=== PATIENT | male | born 1985 | race Caucasian/White ===

== ENCOUNTER 2019-04-06 18:32 | Emergency (ER) | payer OTHER, SELFPAY ==
[2019-04-06 18:35] VITALS: BP 138/86; PULSE 110; RESP 17; TEMP 37.3; O2SAT 97; BMI 31.4
--- NOTE | 2019-04-06 18:46 | ED_ITS ---
HPI - URI/Sore Throat General: Chief Complaint: Upper Respiratory Infection Stated Complaint: headache Time Seen by Provider: 04/06/19 18:40 History of Present Illness: HPI Narrative: Patient is a 33-year-old male who presents to the emergency department complaint of sinus headache, sinus drainage, subjective fever, chills, nasal congestion and cough for last 3 days. He states nasal discharge is clear. He complains of throbbing headache. No history of migraines or medication allergies. He does admit to history of sinus problems. No medications taken prior to arrival. He denies any sneezing, watery eyes, nausea, vomiting abdominal pain. MD elicited complaint: sinus pain Pertinent past history: sinusitis Severity: moderate Description of mucous: clear Able to tolerate fluids by mouth: Yes Exacerbating factors: nothing Relieving factors: nothing Associated symptoms: Reports chills, congestion, cough, headache(s) and sinus pain; Deny abdominal pain Review of Systems Const: Reports: chills Eyes: Denies: change in vision ENMT: Reports: facial/sinus pain Card: Denies: edema Resp: Reports: non-productive cough GI: Denies: abdominal pain : Denies: flank pain or painful urination Musc: Denies: extremity swelling or redness Skin/Breast: Denies: rash or skin swelling Neuro: Reports: headache Psych: Denies: anxiety Endo: Denies: excessive urination Walter/Lymph: Denies: purpura All/Imm: Denies: hives PFSH ED PFSH: Statuses (acute, chronic, etc) shown below reflect problem list status as previously entered and may not be historically accurate Social History Smoking and tobacco status: current every day smoker Physical Exam Const: COMMON NORMALS: no apparent distress, oriented x3 and alert ORIENTATION/CONSCIOUSNESS: Yes oriented to person and Yes oriented to place HENMT: FACE & SINUS: sinuses nontender (frontal) Eye: COMMON NORMALS: PERRL, EOMs intact bilaterally and conjunctivae normal GENERAL EYE: normal appearance of both eyes CONJUNCTIVA: Yes conjunctivae normal PUPIL: Yes PERRL Neck/C-Spine: COMMON NORMALS: full ROM, no lymphadenopathy, supple, no meningeal signs and no JVD GENERAL: Yes normal visual inspection and Yes trachea midline Lymph: LYMPHATIC: no lymphadenopathy noted Chest: COMMONS NORMALS: inspection of chest normal Resp: COMMON NORMALS: normal respiratory effort, no retractions and clear to auscultation bilaterally EFFORT & INSPECTION: Yes able to speak in complete sentences AUSCULTATION: clear to auscultation bilaterally Cardio: COMMON NORMALS: no JVD, regular rate and regular rhythm RATE: regular rate RHYTHM: regular rhythm GI: INSPECTION: Yes normal to inspection AUSCULTATION: Yes normoactive bowel sounds : COMMON NORMALS: Yes no CVA tenderness BLADDER/KIDNEY EXAM: Yes no CVA tenderness Back/Pelvis: COMMON NORMALS: no CVA tenderness THORACIC SPINE/UPPER BACK: Yes normal to inspection LUMBAR SPINE/LOWER BACK: Yes normal to inspection Extremity: COMMON NORMALS: normal to inspection, full ROM and normal capillary refill GENERAL: Yes normal exam except as noted Neuro: COMMON NORMALS: oriented x3, CN's II-XII intact bilaterally, moves all extremities, no focal motor deficits and no sensory deficits noted SENSORIUM/ORIENTATION: Yes alert, Yes oriented to person and Yes oriented to place MENINGEAL SIGNS: Yes no meningeal signs SPEECH: speech normal GAIT: Yes normal gait Psych: COMMON NORMALS: mental status grossly normal, thought process normal, cooperative, affect normal and speech normal APPEARANCE: Yes grossly normal SPEECH: Yes normal speech THOUGHT PROCESS: normal thought process Skin: COMMON NORMALS: no rashes or lesions noted, no wounds and skin turgor normal GENERAL SKIN EXAM: no rashes or lesions noted, elasticity normal and turgor normal Course ED course: Patient with pain on palpation over frontal sinuses with sinus drainage and subjective fever with low-grade temp in the emergency department. Patient with history of sinusitis. Discussed influenza timeline and treatment versus bacterial infection. Patient wishes to proceed with antibiotics for sinusitis. Supportive care measures discussed at length. Stable for discharge after medical screening exam. Vital Signs: Vital signs: Vital Signs Temperature 99.2 F 04/06/19 18:35 Pulse Rate 110 H 04/06/19 18:35 Respiratory Rate 17 04/06/19 18:35 Blood Pressure 138/86 04/06/19 18:35 Pulse Oximetry 97 04/06/19 18:35 MDM - URI/Sore Throat MDM Narrative: Medical decision making narrative: Will treat for sinusitis. Will discharge home with amoxicillin. Supportive care measures discussed at length. Return precautions given along with follow-up with primary care provider. Patient verbalized understanding. Differential Diagnosis: Upper Respiratory Differential Diagnosis: Likely upper respiratory infection, sinusitis and viral infection Discharge Plan Discharge Patient Disposition: Home, Self-Care Clinical Impression: Sinusitis Condition: Stable Prescriptions: New amoxicillin 500 mg capsule 500 mg PO TID 10 Days Qty: 30 RF: 0 ibuprofen 800 mg tablet 800 mg PO Q8H PRN (Reason: pain) Qty: 30 RF: 0 Discharge Orders: Discharge Order (Routine); Ordered 04/06/19 Ordered By: Darrel Jordan Discharge Diet: Usual diet Discharge Activity: Resume usual activity Patient Instructions: Sinusitis - Acute Activity Restrictions/Additional Instructions: Take ibuprofen 800 mg 3 times a day to help with mucosal swelling. Drink plenty of water and Gatorade for oral hydration to clear mucus buildup. May instill Lanier nasal spray. To provide moisture to the nares. Take medication as directed. Follow-up with primary care provider for ongoing evaluation. Obtain Sudafed PE which is [id number] as decongestant. Coding Level of Care Code ED Department Sales Manager for Rambo Krause
[2019-04-06] MEDS: ketorolac 30 mg/mL INJ IVP (19:12)
[2019-04-06 19:21] VITALS: BP 131/97; PULSE 100; RESP 18; O2SAT 96
== END 2019-04-06 19:22 | disposition home or self-care (01) ==
LOC: ER 19:25
PROVIDERS: Emergency Provider Nurse Practitioner
DX: J32.9 Chronic sinusitis, unspecified (principal); F17.210 Nicotine dependence, cigarettes, uncomplicated
CPT/HCPCS: 96374; 96375; 99281; 99283; J1885

== ENCOUNTER 2020-11-26 12:52 | Emergency (ER) | payer OTHER, SELFPAY ==
[2020-11-26 13:25] VITALS: BP 131/87; PULSE 82; RESP 19; TEMP 36.9; O2SAT 99; BMI 29.6
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
[2020-11-26 13:40] VITALS: BP 131/87; PULSE 82; RESP 18; O2SAT 95
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
[2020-11-26] MEDS: iohexol 300 mg/mL 100 mL Btl IV (14:31)
[2020-11-26 16:27] LABS: Alanine Aminotransferase 23 U/L (0-41); Albumin Level 4.3 g/dL (3.5-5.2); Alkaline Phosphatase 97 IU/L (40-130); Anion Gap 14.5 (5-19); Aspartate Amino Transferase 17 U/L (0-40); Blood Urea Nitrogen 9 mg/dL (6-20); Calcium 9.1 mg/dL (8.5-10.5); Carbon Dioxide 27 mmol/L (22-29); Chloride 100 mmol/L (98-107); Globulin 3.2 g/dL (1.3-4.6); Glomerular Filtration Rate 109.4 mL/min (90-130); Glucose 107 mg/dL (65-115); Osmolality Calculated 283 mOsm/kg (285-295); Potassium 4.5 mmol/L (3.5-5.1); Sodium 137 mmol/L (136-145); Total Bilirubin 0.3 mg/dL (0.15-1.2); Total Protein 7.5 g/dL (6.6-8.7)
== END 2020-11-26 15:51 | disposition home or self-care (01) ==
PROVIDERS: Emergency Provider Physician Assistant; PCP Family Medicine
DX: S21.231A Puncture wound without foreign body of right back wall of thorax without penetration into thoracic cavity, initial encounter (principal); X95.9XXA Assault by unspecified firearm discharge, initial encounter; F17.210 Nicotine dependence, cigarettes, uncomplicated
CPT/HCPCS: 71260; 72128; 80053; 99282; Q9967

== ENCOUNTER 2021-07-30 02:17 | Emergency (ER) | payer OTHER, SELFPAY ==
[2021-07-30 02:19] VITALS: BP 143/89; PULSE 99; RESP 18; TEMP 36.5; O2SAT 99; BMI 30.9
--- NOTE | 2021-07-30 02:45 | ED_ITS ---
HPI - Eye Problem General: Chief complaint: Eye Problems Stated complaint: possible metal object in R eye Time Seen by Provider: 07/30/21 02:26 History of Present Illness: Patient report using a napper grinder 2 days ago and felt he might of got a piece of metal in his eye. Patient did not have much discomfort until this evening. Patient came in due to difficulty sleeping and pain. Associated symptoms: Denies neck pain Review of Systems General: Reports: 10 or more systems reviewed and unremarkable except in HPI and below Eyes: Reports: eye discomfort and eye redness Resp: Denies: dyspnea Musc: Denies: neck pain PFSH ED PFSH: Social History Smoking and tobacco status: current every day smoker Physical Exam Const: COMMON NORMALS: alert HENMT: HEAD & SCALP: normal to inspection Eye: VISUAL ACUITY: Yes acuity normal VISUAL VAUGHAN: Yes peripheral vision loss CORNEA: Yes fluorescein used (Note a speck of brown material 4:00 iris edge) Neck/C-Spine: COMMON NORMALS: full ROM Resp: COMMON NORMALS: normal respiratory effort Cardio: COMMON NORMALS: regular rate RATE: regular rate Neuro: SENSORIUM/ORIENTATION: Yes alert Procedures FB Removal Eye Location: eye (R) Foreign body: metal Evidence of corneal penetration: No Technique: cotton tip swab and needle Procedure performed under: direct visualization with magnification Post-procedure medication: ophthalmic antibiotic and topical anesthetic Patient tolerated procedure: well and no complications Course Vital Signs: Vital signs: Vital Signs Temperature 97.7 F 07/30/21 02:19 Pulse Rate 99 07/30/21 02:19 Respiratory Rate 18 07/30/21 02:19 Blood Pressure 144/69 07/30/21 02:48 Pulse Oximetry 96 07/30/21 02:48 MDM - Eye Problem Medical Decision Making 35-year-old male patient comes in with a possible speck of metal from a napper grinder in his eye for 2 to 3 days. On exam we do note a speck of brown material at the 4 o'clock position at the edge of the iris of the right eye. Acuity is normal. Differential diagnosis includes corneal abrasion, corneal penetration, foreign body. We used a needle technique to remove most of the metal from the eye although there remained a rust ring. Patient be started on antibiotic eyedrops and recommended to follow-up with eye health care technician for complete removal of the rust ring. Explained to patient that in order to poor cosmetic appearance it is necessary for him to have the rust ring removed as it may stain the iris. Patient reported understanding and agreed to plan with need for follow-up. Discharge Plan Discharge Patient Disposition: Home Clinical Impression: Foreign body in eye Qualifiers: Encounter type: initial encounter Laterality: right Qualified Code(s): T15.91XA - Foreign body on external eye, part unspecified, right eye, initial encounter Condition: Stable Prescriptions: No Action ibuprofen 800 mg tablet 800 mg PO Q8H PRN (Reason: pain) Qty: 30 0RF Discharge Orders: Discharge ED (Routine); Ordered 07/30/21 Ordered By: Viraj Nichole Referrals: Zayra Dias MD [Primary Care Provider] - Discharge Diet: Usual diet Discharge Activity: Increase activity as tolerated Patient Instructions: Eye Foreign Body (ED) Activity Restrictions/Additional Instructions: Use tetracaine, eye pain drops, 1 drop every 2 hours as needed for severe eye pain. You may use Tylenol and ibuprofen for further pain relief. Use antibiotic eyedrops 1 drop to the affected eye 4 times a day while awake for the next 7 days. Follow-up with eye health care technician to have the rust ring completely removed. If you fail to have the rust ring removed it may stain your iris. Return to ER for new concerns. Stand Alone Forms: Work/School Release Coding Level of Care Code ED Flower Pot Press Operator for Rambo Krause Exam Detailed
[2021-07-30] MEDS: eye irrigation 30 mL Btl EYE-RIGHT (02:47)
[2021-07-30] MEDS: tetracaine 0.5% Op Soln 4 mL Btl 1 DROP EYE-RIGHT (02:47)
[2021-07-30] MEDS: fluorescein 1 mg Strip EYE-RIGHT (02:47)
[2021-07-30 02:48] VITALS: BP 144/69; O2SAT 96
[2021-07-30] MEDS: neomycin-poly-dex Op 5 mL Btl 2 DROP EYE-RIGHT (03:07)
[2021-07-30] MEDS: neomycin-poly-dex Op oint 3.5 gm 1 APPLIC EYE-RIGHT (03:07)
[2021-07-30 03:17] VITALS: BP 144/69
== END 2021-07-30 03:23 | disposition home or self-care (01) ==
PROVIDERS: Emergency Provider Nurse Practitioner Family; PCP Family Medicine
DX: T15.81XA Foreign body in other and multiple parts of external eye, right eye, initial encounter (principal)
CPT/HCPCS: 65205; 99283

== ENCOUNTER 2021-08-10 02:22 | Emergency (ER) | payer OTHER, SELFPAY ==
[2021-08-10 02:26] VITALS: BP 160/92; PULSE 104; RESP 20; TEMP 36.5; O2SAT 97; BMI 30.8
--- NOTE | 2021-08-10 02:41 | ED_ITS ---
HPI - Dental/Oral General: Chief complaint: Dental/Oral Stated complaint: Toothache Time Seen by Provider: 08/10/21 02:24 History of Present Illness: Patient is a 35-year-old male comes to the ED with dental pain. Symptoms started approximately 4 days ago. Pain is located in the left lower jaw. Pain currently rated a 5 out of 10. 2 days ago he had some swelling on the left side of his face but he started taking fish antibiotics and his swelling has improved. [facility] and he is set up with a dentist in [place] for follow-up. Teeth map: 1. Dental pain and extensive caries on teeth #21 and #20. Associated symptoms: Denies fever(s) or odynophagia Review of Systems Const: Denies: fever(s), chills or fatigue Eyes: Denies: change in vision or eye discomfort ENMT: Reports: dental pain; Denies: throat pain, odynophagia, nasal discharge or nasal congestion Card: Denies: chest pain, palpitations, edema, swelling of feet/ankles, dy spnea on exertion or orthopnea Resp: Denies: dyspnea, productive cough or non-productive cough GI: Denies: abdominal pain, nausea, vomiting, diarrhea, constipation or hematochezia : Denies: flank pain, difficulty urinating, dysuria or hematuria Musc: Denies: neck pain, back pain or extremity swelling Skin/Breast: Denies: rash or new lesions Neuro: Denies: headache(s), numbness in extremities or weakness in extremities [facility] ED PFSH: Medical History No pertinent family history Surgical History No pertinent past surgical history Social History Smoking and tobacco status: current every day smoker Physical Exam Const: COMMON NORMALS: patient oriented x3 and alert GENERAL APPEARANCE: cooperative and comfortable HENMT: COMMON NORMALS: normocephalic HEAD & SCALP: normocephalic FACE & SINUS: no edema MOUTH: Normal oral and palatal mucosa present TEETH & GINGIVA: Yes abnormal tooth and associated gingiva lower left first bicuspid tender, with associated gingival edema and other (Extensive dental caries) and Yes caries TEETH & GINGIVA IMAGES: 1. Extensive dental decay and gingival edema noted on teeth #21 and #20. THROAT: posterior oropharynx normal and uvula midline Neck/C-Spine: COMMON NORMALS: supple GENERAL: Yes normal visual inspection Resp: COMMON NORMALS: normal respiratory effort, No retractions, No use of accessory muscles and clear to auscultation bilaterally AUSCULTATION: clear to auscultation bilaterally Cardio: COMMON NORMALS: regular rate, regular rhythm, S1 normal heart sound present, S2 normal heart sound present, No gallops present (Cardio), No clicks present (Cardio), No murmurs present (Cardio) and Peripheral pulses 2+ throughout RATE: regular rate RHYTHM: regular rhythm HEART SOUNDS: S1 normal heart sound present and S2 normal heart sound present PERIPHERAL PULSES: Peripheral pulses 2+ throughout GI: COMMON NORMALS: Normal to inspection, nondistended, normoactive bowel sounds present, Soft to palpation, non-tender and no masses PALPATION: Yes Soft to palpation : COMMON NORMALS: Yes no CVA tenderness BLADDER/KIDNEY EXAM: Yes no CVA tenderness Back/Pelvis: COMMON NORMALS: no CVA tenderness Extremity: COMMON NORMALS: normal to inspection Neuro: COMMON NORMALS: patient oriented x3 and moves all extremities SENSORIUM/ORIENTATION: Yes alert Skin: GENERAL SKIN EXAM: dry skin Course Vital Signs: Vital signs: Vital Signs Temperature 97.7 F 08/10/21 02:26 Pulse Rate 104 H 08/10/21 02:26 Respiratory Rate 20 H 08/10/21 02:26 Blood Pressure 160/92 08/10/21 02:26 Pulse Oximetry 97 08/10/21 02:26 [facility] - Dental/Oral Medical Decision Making Patient is a 35-year-old male comes to the ED with dental pain. Dental pain located in the left lower jaw. Vitals are stable. Patient appears nontoxic in no acute distress or pain. Patient has extensive dental decay and gingival edema on teeth #21 #20. Patient diagnosed with dental pain and was given a dose of clindamycin and Guffey here in the ED. He was discharged home with a prescription for clindamycin, lidocaine viscous and ibuprofen 800 mg. He has a dentist he set up to see in [place]. Return to ED precautions given. Patient understood and agreed with plan. Discharge Plan Discharge Patient Disposition: Home Clinical Impression: Pain, dental Condition: Stable Prescriptions: New ibuprofen 800 mg tablet 800 mg PO Q8H PRN (Reason: pain) Qty: 20 0RF clindamycin HCl 150 mg capsule 300 mg PO QID 7 Days Qty: 56 0RF Lidocaine Viscous 2 % solution 1 applic mucous membrane BID PRN (Reason: pain) Qty: 100 0RF No Action ibuprofen 800 mg tablet 800 mg PO Q8H PRN (Reason: pain) Qty: 30 0RF Discharge Orders: Discharge ED (Routine); Ordered 08/10/21 Ordered By: Brenton Bangura Referrals: Zayra Dias MD [Primary Care Provider] - Discharge Diet: Regular Discharge Activity: Resume usual activity Patient Instructions: Dental Caries (Cavities), Toothache (ED) Activity Restrictions/Additional Instructions: Follow-up with dentist as soon as possible to have dental pain evaluated. Take medications as prescribed. Return to the ER or your medical provider if condition worsens. Please read and understand discharge instructions. Thank you for choosing [facility] for your healthcare needs today. Please realize this is an emergency room and that we are providing you with a medical screening exam and this may not be complete and all inclusive of all the testing and or work up that you may need to determine your ailment or severity of your illness. It is very important that you follow up as instructed or that you return to the Emergency Department should you have concerns or if your condition changes or worsens in any way. Coding Level of Care Code ED Document Photographer for Rambo Krause Exam Comprehensive
[2021-08-10] MEDS: clindamycin 150 mg Capsule 300 MG PO (02:55)
[2021-08-10] MEDS: HYDROcodone-acetaminophen 5-325 mg Tablet 1 TAB PO (02:55)
[2021-08-10 02:56] VITALS: BP 154/85; PULSE 97; RESP 20; TEMP 36.5; O2SAT 97
== END 2021-08-10 02:58 | disposition home or self-care (01) ==
PROVIDERS: Emergency Provider Physician Assistant; PCP Family Medicine
DX: K08.89 Other specified disorders of teeth and supporting structures (principal)
CPT/HCPCS: 99283

== ENCOUNTER → 2024-11-05 09:12 | Outpatient (BNVA) | payer OTHER, SELFPAY | PROVIDERS: PCP Family Medicine; Visit Provider Internal Medicine Cardiovascular Disease | DX: T67.1XXA Heat syncope, initial encounter (principal); R07.9 Chest pain, unspecified; X58.XXXA Exposure to other specified factors, initial encounter | CPT/HCPCS: 93005; 99204 ==